=== PATIENT | male | born 1980 | race Caucasian/White ===

== ENCOUNTER 2018-12-31 15:13 | Emergency (ER) | payer OTHER, SELFPAY ==
[2018-12-31] MEDS ORDERED: Fluorescein Opthalmic Strip ONE (15:28)
[2018-12-31] MEDS ORDERED: Neomycin-Polymyxin-Hc 7.5 ML BOT ONE (15:35)
== END 2018-12-31 15:41 | disposition home or self-care (01) ==
LOC: BURERS 15:13
DX: T15.01XA Foreign body in cornea, right eye, initial encounter (principal); X58.XXXA Exposure to other specified factors, initial encounter
CPT/HCPCS: 65220